=== PATIENT | male | born 1985 | race Caucasian/White ===

== ENCOUNTER 2019-11-20 00:25 | Emergency (ER) | payer SELFPAY ==
[~2019-11-20] VITALS: Ht 154.9 cm; Wt 73.5 kg
[2019-11-20 00:35] VITALS: BP 109/74
--- NOTE | 2019-11-20 01:07 | NUR ---
DR. DURBIN IN TENT FOR MEDICAL EVALUATION.
--- NOTE | 2019-11-20 01:29 | NUR ---
COVID SWAB COLLECTED AND WALKED TO LAB.
--- NOTE | 2019-11-20 01:35 | NUR ---
PT ASSESSMENT COMPLETED BY DR. DURBIN, NO NURSING INTERVENTIONS NEEDED AT THIS TIME.
[2019-11-20 01:40] VITALS: BP 109/74
--- NOTE | 2019-11-20 01:40 | NUR ---
Patient discharged with v/s stable. Written and verbal after care instructions given and explained. Patient alert, oriented and verbalized understanding of instructions. Ambulatory with steady gait. All questions addressed prior to discharge. ID band removed. Patient advised to follow up with PMD. Rx of ZOFRAN AND TYLENOL given. Patient educated on indication of medication including possible reaction and side effects. Opportunity to ask questions provided and answered.
== END 2019-11-20 01:40 | disposition home or self-care (01) ==
LOC: MED 00:25
DX: B34.9 Viral infection, unspecified (principal); Z20.828 Contact with and (suspected) exposure to other viral communicable diseases
CPT/HCPCS: 99283; U0003